=== PATIENT | male | born 1985 | race Caucasian/White ===

== ENCOUNTER 2018-07-28 20:55 | Inpatient (IN) | payer OTHER ==
[2018-07-28 21:57] VITALS: BMI 29.2
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
[2018-07-28] MEDS ORDERED: MENTHOL/PHENOL 1 EACH UD MM PRN (22:27)
[2018-07-28] MEDS ORDERED: MAGNESIUM HYDROX 2400MG/30ML ORAL SUSPENSION 30 ML CUP PO PRN (22:27)
[2018-07-28] MEDS ORDERED: ACETAMINOPHEN 325 MG TABLET (FP) PO PRN (22:27)
[2018-07-28] MEDS ORDERED: guaiFENesin 200 MG/10 ML 10 ML UNIT-DOSE CUPS PO PRN (22:27)
[2018-07-28] MEDS ORDERED: P-EPHED 60MG/TRIPROLIDI 2.5MG TABLET PO PRN (22:27)
[2018-07-28] MEDS ORDERED: MAG HYDROX/AL HYDROX/SIMETH 30 ML UNIT-DOSE CUP PO PRN (22:27)
[2018-07-28] MEDS ORDERED: hydrOXYzine PAMOATE 25 MG CAPSULE (FP) PO PRN (22:27)
[2018-07-28] MEDS ORDERED: ONDANSETRON *ODT* 4 MG TABLET SL PRN (22:27)
[2018-07-28] MEDS ORDERED: BISMUTH SUBSALICYLATE 524 MG/30 ML UD PO PRN (22:27)
[2018-07-28] MEDS ORDERED: MAGNESIUM CITRATE 300 ML BOTTLE PO PRN (22:27)
[2018-07-28] MEDS ORDERED: IBUPROFEN 400 MG TABLET (FP) PO PRN (22:27)
[2018-07-28] MEDS: diazePAM 5 MG TABLET PO SCH (23:05)
[2018-07-29] MEDS ORDERED: LORazepam 2 MG/ML SDV VIAL IM ONE (00:16)
[2018-07-29] MEDS ORDERED: TRIMETHOBENZAMIDE HCL 200MG/2ML INJ IM ONE (00:17)
[2018-07-29] MEDS ORDERED: cloNIDine HCL 0.1 MG TABLET PO ONE (00:20)
--- NOTE | 2018-07-29 00:20 | PN ---
S Progress Note Note: seen for c/o worsening withdrawal sx's c/o, sweats, shakes, dry heaving. client does not want librium taper a- withdrawal sx's p- ativan 1 mg im now tigan 200 mg im now clonidine 0.1 mg now cont to monitor clinically Vital Signs Temperature 98.2 F 07/29/18 00:01 Pulse Rate 119 H 07/29/18 00:03 Respiratory Rate 20 07/29/18 00:03 Blood Pressure 156/111 H 07/29/18 00:01 O2 Sat by Pulse Oximetry (%)
[2018-07-29] MEDS: diazePAM 5 MG TABLET PO PRN ×5 (01:20→21:09)
[2018-07-29] MEDS: diazePAM 5 MG TABLET PO SCH ×3 (05:27→21:54)
[2018-07-29] MEDS: METHOCARBAMOL 500 MG TABLET PO PRN ×2 (09:55→18:17)
[2018-07-29] MEDS: NICOTINE 21 MG/24 HOURS TOPICAL PATCH TD SCH (09:55)
[2018-07-29] MEDS: PRENATAL VITAMINS W/ FOLIC ACID TABLET (FP) PO SCH (09:55)
--- NOTE | 2018-07-29 10:30 | PN ---
S CIWA - CIWA Score Nausea/Vomitin Muscle Tremors: 2 Anxiety: 5 Agitation: 5 Paroxysmal Sweats: 4-Forehead w/Sweat Beads Orientation: 0-Oriented Tacttile Disturbances: 0-None Auditory Disturbances: 0-None Visual Disturbances: 0-None Headache: 0-None Present CIWA-Ar Total Score: 19 BHS COWS - Scale Resting Pulse: 1= [place] 81-100 Sweatin= Beads of Sweat on Face Restless Observation: 3= Extraneous Movement Pupil Size: 0= Normal to Room Light Bone or Joint Aches: 1= Mild Discomfort Runny Nose/ Eye Tearin= Nasal Congestion GI Upset > 30mins: 0= None Tremor Observation of Outstretched Hands: 1= Tremor [place], Not Seen Yawning Observation: 1= 1-2x During Session Anxiety or Irritability: 4=Extreme Anxiety Goose Flesh Skin: 3=Piloerection COWS Score: 18 BHS Progress Note (SOAP) Subjective: Requesting subutex Anxious Objective: 07/29/18 10:32 A & O x 3 Anxious/agitated sweaty Vital Signs Temperature 98.4 F 07/29/18 09:31 Pulse Rate 88 07/29/18 09:31 Respiratory Rate 18 07/29/18 09:31 Blood Pressure 162/95 07/29/18 09:31 O2 Sat by Pulse Oximetry (%) LAbs pending Assessment: 07/29/18 10:33 Withdrawal sx Plan: Continue detox increase hydration Pharmacy does not carry subutex, unable to put pt on suboxone so as not to precipitate adverse reaction. Methadone taper thus started started (moderate), with a STAT dose; pt was educated on the reason and he is agreeable to plan. vistaril d/c in view of its prolongation of QT with methadone; to monitor and manage withdrawal symptoms as necessary.
[2018-07-29] MEDS ORDERED: METHADONE HCL 10 MG TABLET PO STA (10:34)
[2018-07-29 11:04] LABS: ALBUMIN 4.4 g/dl (3.4-5.0); ALK PHOS 121 U/L (45-117); ANION GAP 9 MMOL/L (8-16); BILIRUBIN,TOTAL 0.8 mg/dL (0.2-1); BLOOD UREA NITROGEN 14 mg/dL (7-18); CALCIUM 9.1 mg/dL (8.5-10.1); CHLORIDE 96 mmol/L (98-107); CO2 28 mmol/L (21-32); CREATININE 0.7 mg/dL (0.55-1.3); GLUCOSE,RANDOM 106 mg/dL (74-106); POTASSIUM 3.3 mmol/L (3.5-5.1); SGOT/AST 96 U/L (15-37); SGPT/ALT 97 U/L (13-61); SODIUM 133 mmol/L (136-145); TOT PROT 8.1 g/dl (6.4-8.2)
[2018-07-29 12:18] LABS: HEMATOCRIT 39.7 % (35.4-49); HEMOGLOBIN 14.4 GM/dL (11.7-16.9); MCH 33.9 pg (25.7-33.7); MCHC 36.3 g/dl (32.0-35.9); MEAN CELL VOLUME 93.5 fl (80-96); MEAN PLT VOLUME 7.9 fl (7.5-11.1); RBC 4.25 M/mm3 (4.00-5.60); RDW 14.3 % (11.9-15.9); WHITE BLOOD COUNT 5.5 K/mm3 (4.0-10.0)
[2018-07-29 12:20] LABS: PLATELET COUNT 90 K/MM3 (134-434)
[2018-07-29 12:51] LABS: HYALINE CASTS 6 /hpf (0-8); URINE APPEARANCE CLEAR; URINE BACTERIA 9.144 /hpf (NEGATIVE); URINE BILIRUBIN NEGATIVE (<2.0 mg/dL); URINE COLOR DK YELLOW; URINE GLUCOSE (UA) NEGATIVE (NEGATIVE); URINE KETONE TRACE (NEGATIVE); URINE LEUK ESTERASE TRACE (NEGATIVE); URINE NITRITE NEGATIVE (NEGATIVE); URINE PROTEIN 2+ (NEGATIVE); URINE UROBILINOGEN 4.0 E.U/dl mg/dL (0.2-1.0); URINE WBC 0 /hpf (0-5)
[2018-07-29] MEDS: cloNIDine HCL 0.1 MG TABLET PO PRN (13:35)
[2018-07-29 15:10] LABS: URINE RBC 17.3 /hpf (0-4)
--- NOTE | 2018-07-29 16:35 | EKG ---
Test Reason : Blood Pressure : / mmHG Vent. Rate : 089 BPM Atrial Rate : 089 BPM P-R Int : 148 ms QRS Dur : 102 ms QT Int : 362 ms P-R-T Axes : 060 074 053 degrees QTc Int : 440 ms NORMAL SINUS RHYTHM NORMAL ECG NO PREVIOUS ECGS AVAILABLE Confirmed by CHRISTIE BOWLING MD ([id number]) on 07/29/2018 4:35:13 PM Referred By: Confirmed By:CHRISTIE BOWLING MD
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
[2018-07-29] MEDS: THIAMINE HCL 100 MG TABLET (FP) PO SCH (21:54)
[2018-07-29] MEDS: MELATONIN 5 MG TABLETS PO PRN (21:54)
[2018-07-29] MEDS ORDERED: METHADONE HCL 10 MG TABLET (FOR DETOX USE ONLY) PO ONE (23:00)
[2018-07-30] MEDS: METHOCARBAMOL 500 MG TABLET PO PRN ×4 (00:52→17:40)
[2018-07-30] MEDS: diazePAM 5 MG TABLET PO PRN ×5 (01:36→19:38)
[2018-07-30] MEDS: diazePAM 5 MG TABLET PO SCH ×2 (09:37→22:04)
[2018-07-30] MEDS: NICOTINE 21 MG/24 HOURS TOPICAL PATCH TD SCH (09:37)
[2018-07-30] MEDS: PRENATAL VITAMINS W/ FOLIC ACID TABLET (FP) PO SCH (09:37)
[2018-07-30] MEDS ORDERED: METHADONE HCL 5 MG TABLET (FOR DETOX USE ONLY) PO ONE (10:00)
[2018-07-30] MEDS: cloNIDine HCL 0.1 MG TABLET PO PRN ×2 (12:37→22:03)
--- NOTE | 2018-07-30 15:21 | PN ---
S CIWA - CIWA Score Nausea/Vomitin Muscle Tremors: 3 Anxiety: 3 Agitation: 3 Paroxysmal Sweats: 3 Orientation: 0-Oriented Tacttile Disturbances: 0-None Auditory Disturbances: 0-None Visual Disturbances: 0-None Headache: 0-None Present CIWA-Ar Total Score: 14 BHS COWS - Scale Resting Pulse: 1= [place] 81-100 Sweatin= Chills/Flushing Restless Observation: 3= Extraneous Movement Pupil Size: 0= Normal to Room Light Bone or Joint Aches: 2= Severe Diffuse Aches Runny Nose/ Eye Tearin= Runny Nose/Eyes GI Upset > 30mins: 1= Stomach Cramp Tremor Observation of Outstretched Hands: 2= Slight Tremor Visible Yawning Observation: 0= None Anxiety or Irritability: 2=Irritable/Anxious Goose Flesh Skin: 0=Smooth Skin COWS Score: 14 S Progress Note (SOAP) Subjective: Sweating, chills, tremor, agitated, interrupted sleep, tongue twitching due to tremor as per patient, stated twitching relieved with benzo. As per RN, patient found with tobacco and suboxone film in gloves tucked in his pocket. Patient stated that he took minces of tobacco and a piece of suboxone film with him to detox but he never used any. Patient educated on importance of not mixing his medications with outside medication as this can cause drug OD in which he verbalized understanding. Objective: 07/30/18 15:18 Last Vital Signs Temp Pulse Resp BP Pulse Ox 97.9 F 81 16 163/83 07/30/18 13:11 07/30/18 13:11 07/30/18 13:11 07/30/18 13:11 b/p noted (denies htn, on clonidine prn) Laboratory Tests 07/29/18 07/29/18 07/29/18 07:30 07:30 07:30 WBC 5.5 RBC 4.25 Hgb 14.4 Hct 39.7 MCV 93.5 MCH 33.9 H MCHC 36.3 H RDW 14.3 D Plt Count 90 L D MPV 7.9 Sodium 133 L Potassium 3.3 L Chloride 96 L Carbon Dioxide 28 Anion Gap 9 BUN 14 Creatinine 0.7 Creat Clearance w eGFR 131.54 Random Glucose 106 Calcium 9.1 Total Bilirubin 0.8 AST 96 H ALT 97 H Alkaline Phosphatase 121 H Total Protein 8.1 Albumin 4.4 Urine Color Urine Appearance Urine pH Ur Specific [place] Urine Protein Urine Glucose (UA) Urine Ketones Urine Blood Urine Nitrite Urine Bilirubin Urine Urobilinogen Ur Leukocyte Esterase Urine WBC (Auto) Urine RBC (Auto) Urine Casts (Auto) U Epithel Cells (Auto) Urine Bacteria (Auto) RPR Titer Nonreactive 07/29/18 07:30 WBC RBC Hgb Hct MCV MCH MCHC RDW Plt Count MPV Sodium Potassium Chloride Carbon Dioxide Anion Gap BUN Creatinine Creat Clearance w eGFR Random Glucose Calcium Total Bilirubin AST ALT Alkaline Phosphatase Total Protein Albumin Urine Color Dk yellow Urine Appearance Clear Urine pH 7.0 Ur Specific [place] 1.023 Urine Protein 2+ Urine Glucose (UA) Negative Urine Ketones Trace H Urine Blood Negative Urine Nitrite Negative Urine Bilirubin Negative Urine Urobilinogen 4.0 e.u/dl Ur Leukocyte Esterase Trace Urine WBC (Auto) 0 Urine RBC (Auto) 17.3 Urine Casts (Auto) 6 U Epithel Cells (Auto) 1.0 Urine Bacteria (Auto) 9.144 RPR Titer Labs reviewed: plt 90, K 3.3, abnormal UA Assessment: 07/30/18 15:21 Withdrawal symptoms Noted with thrombocytopenia, hypokalemia and abnormal UA Plan: Continue detox Encouraged PO water hydration Thrombocytopenia: most likely due to chronic alcoholism, follow up with PCP for monitoring Hypokalemia: K Dur 40 Meq PO x 2 doses (give at least 4 hours apart) repeat serum K level in AM Abnormal UA: repeat UA
[2018-07-30] MEDS ORDERED: POTASSIUM CHLORIDE TABS 20 MEQ TABLET.ER (FP) PO ONE ×2 (15:26→21:30)
[2018-07-30] MEDS: THIAMINE HCL 100 MG TABLET (FP) PO SCH (22:03)
[2018-07-30] MEDS: MELATONIN 5 MG TABLETS PO PRN (22:03)
[2018-07-31] MEDS: diazePAM 5 MG TABLET PO PRN ×5 (01:24→19:38)
[2018-07-31] MEDS: METHOCARBAMOL 500 MG TABLET PO PRN ×4 (01:26→19:38)
[2018-07-31] MEDS ORDERED: diazePAM 5 MG TABLET PO SCH (06:00)
[2018-07-31] MEDS: NICOTINE POLACRILEX 4 MG GUM BUC PRN ×2 (06:29→19:59)
[2018-07-31] MEDS: cloNIDine HCL 0.1 MG TABLET PO PRN ×3 (08:49→23:17)
[2018-07-31] MEDS: PRENATAL VITAMINS W/ FOLIC ACID TABLET (FP) PO SCH (09:39)
[2018-07-31] MEDS: NICOTINE 21 MG/24 HOURS TOPICAL PATCH TD SCH (09:39)
[2018-07-31] MEDS ORDERED: METHADONE HCL 10 MG TABLET (FOR DETOX USE ONLY) PO ONE (10:00)
[2018-07-31 12:34] LABS: URINE APPEARANCE CLEAR; URINE BILIRUBIN NEGATIVE (NEGATIVE); URINE COLOR DK YELLOW; URINE GLUCOSE (UA) NEGATIVE (NEGATIVE); URINE KETONE TRACE (NEGATIVE); URINE LEUK ESTERASE NEGATIVE (NEGATIVE); URINE NITRITE NEGATIVE (NEGATIVE); URINE PROTEIN NEGATIVE (NEGATIVE)
--- NOTE | 2018-07-31 17:01 | PN ---
BHS Progress Note (SOAP) Subjective: Interrupted Sleep, Sweating, Tremors. Objective: PATIENT A & O X 3, OBSERVED AMBULATING ON UNIT. IN NO ACUTE DISTRESS. 07/31/18 16:59 Vital Signs Temperature 98.2 F 07/31/18 14:03 Pulse Rate 77 07/31/18 14:03 Respiratory Rate 16 07/31/18 14:03 Blood Pressure 141/63 07/31/18 14:03 O2 Sat by Pulse Oximetry (%) Laboratory Tests 07/29/18 07/29/18 07/29/18 07:30 07:30 07:30 WBC 5.5 RBC 4.25 Hgb 14.4 Hct 39.7 MCV 93.5 MCH 33.9 H MCHC 36.3 H RDW 14.3 D Plt Count 90 L D MPV 7.9 Sodium 133 L Potassium 3.3 L Chloride 96 L Carbon Dioxide 28 Anion Gap 9 BUN 14 Creatinine 0.7 Creat Clearance w eGFR 131.54 Random Glucose 106 Calcium 9.1 Total Bilirubin 0.8 AST 96 H ALT 97 H Alkaline Phosphatase 121 H Total Protein 8.1 Albumin 4.4 Urine Color Urine Appearance Urine pH Ur Specific [place] Urine Protein Urine Glucose (UA) Urine Ketones Urine Blood Urine Nitrite Urine Bilirubin Urine Urobilinogen Ur Leukocyte Esterase Urine WBC (Auto) Urine RBC (Auto) Urine Casts (Auto) U Epithel Cells (Auto) Urine Bacteria (Auto) RPR Titer Nonreactive 07/29/18 07/31/18 07/31/18 07:30 07:00 09:45 WBC RBC Hgb Hct MCV MCH MCHC RDW Plt Count MPV Sodium Potassium 3.9 Chloride Carbon Dioxide Anion Gap BUN Creatinine Creat Clearance w eGFR Random Glucose Calcium Total Bilirubin AST ALT Alkaline Phosphatase Total Protein Albumin Urine Color Dk yellow Dk yellow Urine Appearance Clear Clear Urine pH 7.0 7.0 Ur Specific [place] 1.023 1.022 Urine Protein 2+ Negative Urine Glucose (UA) Negative Negative Urine Ketones Trace H Trace H Urine Blood Negative Negative Urine Nitrite Negative Negative Urine Bilirubin Negative Negative Urine Urobilinogen 4.0 e.u/dl 1.0 Ur Leukocyte Esterase Trace Negative Urine WBC (Auto) 0 Urine RBC (Auto) 17.3 Urine Casts (Auto) 6 U Epithel Cells (Auto) 1.0 Urine Bacteria (Auto) 9.144 RPR Titer LABS NOTED. RESULT OF REPEAT K LEVEL NOTED. K LEVEL NOW NOTED TO BE WITHIN NORMAL RANGE. RESULT OF REPEAT UA NOTED. 07/31/18 17:00 Assessment: 07/31/18 17:00 WITHDRAWAL SYMPTOMS. ELEVATED LIVER ENZYMES. THROMBOCYTOPENIA. 07/31/18 17:01 Plan: CONTINUE DETOX. INCREASE DAILY PO FLUID INTAKE.
[2018-07-31] MEDS: THIAMINE HCL 100 MG TABLET (FP) PO SCH (23:17)
[2018-07-31] MEDS: MELATONIN 5 MG TABLETS PO PRN (23:18)
[2018-08-01] MEDS: METHOCARBAMOL 500 MG TABLET PO PRN (02:12)
[2018-08-01] MEDS ORDERED: METHADONE HCL 5 MG TABLET (FOR DETOX USE ONLY) PO ONE (06:00)
[2018-08-01] MEDS: NICOTINE POLACRILEX 4 MG GUM BUC PRN (06:24)
[2018-08-01 06:40] VITALS: BP 137/84; PULSE 82; TEMP 96.3
--- NOTE | 2018-08-01 08:24 | DS ---
[facility] Detox Discharge Summary Admission Date: 07/28/18 Discharge Date: 08/01/18 - History Present History: Alcohol Dependence, Cannabis Dependence, Sedative Dependence - Physical Exam Results Vital Signs: Vital Signs Temperature 96.3 F L 08/01/18 06:39 Pulse Rate 82 08/01/18 06:39 Respiratory Rate 18 08/01/18 06:39 Blood Pressure 137/84 08/01/18 06:39 O2 Sat by Pulse Oximetry (%) - Treatment Hospital Course: Detox Protocol Followed, Detoxed Safely, Responded well, Discharged Condition Good, Rehab Referral Accepted - Medication Discharge Medications: Ambulatory Orders Buprenorphine HCl [Subutex -] 8 mg SL DAILY 07/28/18 clonazePAM [Klonopin -] 0.5 mg PO DAILY 07/28/18 - Diagnosis (1) Alcohol dependence Current Visit: Yes Status: Active (2) Elevated liver enzymes Current Visit: Yes Status: Acute (3) Nicotine dependence Current Visit: Yes Status: Chronic Qualifiers: Nicotine product type: cigarettes (4) Thrombocytopenia Current Visit: Yes Status: Acute (5) Benzodiazepine dependence Current Visit: Yes Status: Chronic (6) Cannabis dependence Current Visit: Yes Status: Chronic (7) Insomnia Current Visit: Yes Status: Chronic (8) Substance induced mood disorder Current Visit: Yes Status: Chronic (9) Anxiety disorder Current Visit: No Status: Active (10) PTSD Current Visit: No Status: Active - AMA Did Patient Leave Against Medical Advice: No (referred to pt IOP)
== END 2018-08-01 08:24 | disposition home or self-care (01) | DRG 773 ==
LOC: YASAS 20:55 → Y6N 22:39
PROVIDERS: ADMIT Surgery; ATTEND Surgery
PROC: HZ2ZZZZ Detoxification Services for Substance Abuse Treatment (ICD-10-PCS; principal; 2018-07-29)
DX: F10.230 Alcohol dependence with withdrawal, uncomplicated (principal); F11.20 Opioid dependence, uncomplicated; F13.230 Sedative, hypnotic or anxiolytic dependence with withdrawal, uncomplicated; F12.20 Cannabis dependence, uncomplicated; F17.210 Nicotine dependence, cigarettes, uncomplicated; F41.9 Anxiety disorder, unspecified; F19.24 Other psychoactive substance dependence with psychoactive substance-induced mood disorder; F43.10 Post-traumatic stress disorder, unspecified; G47.00 Insomnia, unspecified; R94.5 Abnormal results of liver function studies; D69.6 Thrombocytopenia, unspecified; E87.6 Hypokalemia; R82.90 Unspecified abnormal findings in urine
CPT/HCPCS: 36415; 80053; 81003; 84132; 85027; 86593; 93005; 93010; J0735; Q0162

== ENCOUNTER 2018-12-18 11:26 | Inpatient (IN) | payer OTHER | END 2018-12-21 08:51 | disposition home or self-care (01) | LOC: YASAS 11:26 → Y3N 13:50 ==

== ENCOUNTER 2019-01-29 19:49 | Emergency (ER) | payer OTHER ==
--- NOTE | 2019-01-29 20:13 | PDOC ---
Attending Attestation - Resident Resident Name: Nirali García - ED Attending Attestation I have performed the following: I have examined & evaluated the patient, The case was reviewed & discussed with the resident, I agree w/resident's findings & plan - HPI HPI: 01/29/19 20:45 see resident hpi - Physicial Exam PE: 01/29/19 20:45 agree with resident exam - Medical Decision Making 01/29/19 20:45 33-year-old male with history of polysubstance abuse for clearance sent from [facility] Patient has been ambulating around the emergency department making phone calls to family stating he did not want to wait for full medical clearance He is alert oriented 4 with steady gait He understands that he would be getting both blood work in full medical evaluation which he prefers again not to wait for Security will be escorting him back 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 He has voiced that he will be taking a bus or train back home. He did attempt to call his father from the emergency Department as well.
[2019-01-29] MEDS ORDERED: diazePAM 2 MG TABLET PO ONE (20:14)
[2019-01-29 20:22] VITALS: BP 153/82; PULSE 108; TEMP 98.3; BMI 20.5
--- NOTE | 2019-01-29 20:41 | PDOC ---
History of Present Illness - General Chief Complaint: Alcohol intoxication Stated Complaint: EVALUATION Time Seen by Provider: 01/29/19 20:04 History Source: Patient Exam Limitations: No Limitations - History of Present Illness Initial Comments: 01/29/19 20:36 33yo M with PMH of BZ,Alcohol, Heroin use presenting to ED from [facility] for evaluation. Patient states that he uses Xanax (6 bars qam), Klonopin, Valium, IV heroin, and alcohol. Patient states last use was yesterday and he drinks "1 gallon of 180 proof liquor". He says he used Valium today. He states he feels anxious but denies chest pain, sob, nausea, vomiting, abdominal pain, headaches , changes in vision. Past History - Past Medical History Allergies/Adverse Reactions: Allergies Allergy/AdvReac Type Severity Reaction Status Date / Time No Known Allergies Allergy Verified 01/29/19 20:06 Home Medications: Ambulatory Orders Buprenorphine HCl [Subutex -] 8 mg SL DAILY 07/28/18 clonazePAM [Klonopin -] 0.5 mg PO DAILY 07/28/18 Amlodipine Besylate [Norvasc -] 5 mg PO DAILY #30 tablet 12/20/18 Anemia: No Asthma: No Cancer: No Cardiac Disorders: No CVA: No COPD: No CHF: No Dementia: No Diabetes: No GI Disorders: No Disorders: No HTN: No Hypercholesterolemia: No Kidney Stones: No Liver Disease: No Seizures: Yes (RELATED TO ALCOHOL WITHDRAWAL) Thyroid Disease: No - Surgical History Abdominal Surgery: No Appendectomy: No Cardiac Surgery: No Cholecystectomy: No Lung Surgery: No Neurologic Surgery: No Orthopedic Surgery: No - Reproductive History Testicular Surgery: No - Suicide/Smoking/Psychosocial Hx Smoking History: Current every day smoker Have you smoked in the past 12 months: Yes Number of Cigarettes Smoked Daily: 10 Information on smoking cessation initiated: No 'Breaking Loose' booklet given: 12/18/18 Hx Alcohol Use: Yes Drug/Substance Use Hx: Yes Substance Use Type: Alcohol, Tranquilizers Hx Substance Use Treatment: Yes ([facility]) Review of Systems - Review of Systems Constitutional: Yes: Diaphoresis HEENTM: No: Symptoms Reported Respiratory: No: Symptoms reported Cardiac (ROS): No: Symptoms Reported ABD/GI: No: Symptoms Reported : No: Symptoms Reported Musculoskeletal: No: Symptoms Reported Integumentary: No: Symptoms Reported Neurological: No: Symptoms reported Psychiatric: Yes: Anxiety *Physical Exam - Vital Signs Last Vital Signs Temp Pulse Resp BP Pulse Ox 98.3 F 108 H 22 H 153/82 100 01/29/19 20:03 01/29/19 20:03 01/29/19 20:03 01/29/19 20:03 01/29/19 20:03 - Physical Exam General Appearance: Yes: Nourished, Appropriately Dressed, Other (diaphoretic) HEENT: positive: EOMI, SUKHWINDER, Other (no nystagmus) Neck: negative: Lymphadenopathy (R), Lymphadenopathy (L) Respiratory/Chest: positive: Lungs Clear, Normal Breath Sounds. negative: Crackles, Rales, Stridor, Wheezing, Hyperresonant Cardiovascular: positive: S1, S2, Tachycardia. negative: Edema, JVD, Murmur Vascular Pulses: Dorsalis-Pedis (R): 2+, Doralis-Pedis (L): 2+ Gastrointestinal/Abdominal: positive: Normal Bowel Sounds, Soft. negative: Tender Musculoskeletal: negative: CVA Tenderness Extremity: positive: Normal Capillary Refill. 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 Patient states that he uses Xanax (6 bars qam), Klonopin, Valium, IV heroin, and alcohol. Patient states last use was yesterday and he drinks "1 gallon of 180 proof liquor". He says he used Valium today. He states he feels anxious but denies chest pain, sob, nausea, vomiting, abdominal pain, headaches , changes in vision. patient is tachycardic, diaphoretic. AOx4, walking with steady gait, no slurred speech. Patient is not acutely intoxicated and has capacity to make decisions. Does not require medications at this time. Does not require Utox Can be safely discharged at this time. Patient has belongings and clothing at [facility], will be able to get items. *DC/Admit/Observation/Transfer Diagnosis at time of Disposition: Alcohol dependence, Benzodiazepine dependence, Opioid dependence on agonist therapy - Discharge Dispostion Disposition: HOME Condition at time of disposition: Good - Referrals - Patient Instructions Printed Discharge Instructions: DI for Alcohol Abuse Additional Instructions: You were seen in the emergency room for intoxication. I highly recommend that you go to detox to help you with alcohol, benzodiazepine and heroin dependence. Please come back to the emergency room if you have seizures, pass out, start having abdominal pain, or if any new concerning symptom develops. Thank you - Post Discharge Activity
== END 2019-01-29 23:11 | disposition home or self-care (01) ==
LOC: JER 19:49
DX: F10.20 Alcohol dependence, uncomplicated (principal); F13.20 Sedative, hypnotic or anxiolytic dependence, uncomplicated; F11.20 Opioid dependence, uncomplicated; G40.509 Epileptic seizures related to external causes, not intractable, without status epilepticus; F17.210 Nicotine dependence, cigarettes, uncomplicated
CPT/HCPCS: 99281-25

== ENCOUNTER 2019-01-31 13:45 | Inpatient (IN) | payer OTHER ==
[2019-01-31 14:55] VITALS: BMI 28.8
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
--- NOTE | 2019-01-31 18:48 | PN ---
Teaching Attending Note Name of Resident: Hadley Back ATTENDING PHYSICIAN STATEMENT I saw and evaluated the patient. I reviewed the resident's note and discussed the case with the resident. I agree with the resident's findings and plan as documented. SUBJECTIVE: 33 yo with h/o anxiety/depression on meds. Use of alcohol 1 gallon vodka/day, uses benzo on Bupe 24mg/day OBJECTIVE: Vital Signs - 24 hr 01/31/19 14:44 Temperature 97.7 F Pulse Rate 112 H Respiratory 20 Rate Blood Pressure 156/104 H agitated alert and oriented ASSESSMENT AND PLAN: Admit for alcohol use disorder- valium protocol pt prescribed Klonopin and Bupe
[2019-01-31] MEDS ORDERED: MAGNESIUM CITRATE 300 ML BOTTLE PO PRN (18:56)
[2019-01-31] MEDS ORDERED: ACETAMINOPHEN 325 MG TABLET (FP) PO PRN ×2 (18:56)
[2019-01-31] MEDS ORDERED: hydrOXYzine PAMOATE 25 MG CAPSULE (FP) PO PRN (18:56)
[2019-01-31] MEDS ORDERED: MAGNESIUM HYDROX 2400MG/30ML ORAL SUSPENSION 30 ML CUP PO PRN (18:56)
[2019-01-31] MEDS ORDERED: BISMUTH SUBSALICYLATE 524 MG/30 ML UD PO PRN (18:56)
[2019-01-31] MEDS ORDERED: MAG HYDROX/AL HYDROX/SIMETH 30 ML UNIT-DOSE CUP PO PRN (18:56)
[2019-01-31] MEDS ORDERED: diazePAM 5 MG TABLET PO ONE (18:56)
[2019-01-31] MEDS ORDERED: IBUPROFEN 400 MG TABLET (FP) PO PRN (18:56)
[2019-01-31] MEDS ORDERED: MENTHOL/PHENOL 1 EACH UD MM PRN (18:56)
[2019-01-31] MEDS: METHOCARBAMOL 500 MG TABLET PO PRN (19:39)
[2019-01-31] MEDS: THIAMINE HCL 100 MG TABLET (FP) PO SCH (21:55)
[2019-01-31] MEDS: MELATONIN 5 MG TABLETS PO PRN (21:55)
[2019-01-31] MEDS: BUPRENORPHINE/NALOXONE 8 MG/2 MG FILM PACKET SL SCH (21:55)
[2019-01-31] MEDS: diazePAM 5 MG TABLET PO SCH (21:56)
[2019-01-31] MEDS: diazePAM 5 MG TABLET PO PRN (23:56)
[2019-02-01] MEDS: METHOCARBAMOL 500 MG TABLET PO PRN ×4 (02:31→22:12)
[2019-02-01] MEDS: BUPRENORPHINE/NALOXONE 8 MG/2 MG FILM PACKET SL SCH ×3 (05:53→22:11)
[2019-02-01] MEDS: diazePAM 5 MG TABLET PO SCH ×3 (05:53→22:11)
[2019-02-01] MEDS: diazePAM 5 MG TABLET PO PRN ×3 (07:34→16:59)
[2019-02-01] MEDS: NICOTINE POLACRILEX 2 MG GUM BUC PRN (09:22)
[2019-02-01 09:37] LABS: HEMATOCRIT 41.2 % (35.4-49); HEMOGLOBIN 14.1 GM/dL (11.7-16.9); MCH 32.9 pg (25.7-33.7); MCHC 34.3 g/dl (32.0-35.9); MEAN CELL VOLUME 95.9 fl (80-96); MEAN PLT VOLUME 8.6 fl (7.5-11.1); PLATELET COUNT 103 K/MM3 (134-434); RDW 14.3 % (11.9-15.9)
[2019-02-01 09:46] LABS: ALBUMIN 3.8 g/dl (3.4-5.0); BILIRUBIN,TOTAL 0.7 mg/dL (0.2-1); BLOOD UREA NITROGEN 10.8 mg/dL (7-18); CALCIUM 9.1 mg/dL (8.5-10.1); CREATININE 0.7 mg/dL (0.55-1.3); POTASSIUM 3.3 mmol/L (3.5-5.1)
[2019-02-01] MEDS ORDERED: BUPRENORPHINE/NALOXONE 8 MG/2 MG FILM PACKET SL SCH (10:00)
[2019-02-01] MEDS ORDERED: NICOTINE 14 MG/24 HOURS TOPICAL PATCH TD SCH (10:00)
[2019-02-01] MEDS: amLODIPine BESYLATE 5 MG TABLET (FP) PO SCH (10:37)
[2019-02-01] MEDS: NICOTINE 21 MG/24 HOURS TOPICAL PATCH TD SCH (10:37)
[2019-02-01] MEDS: cloNIDine HCL 0.1 MG TABLET PO SCH (10:37)
[2019-02-01] MEDS: PRENATAL VITAMINS W/ FOLIC ACID TABLET (FP) PO SCH (10:38)
--- NOTE | 2019-02-01 13:20 | PN ---
S CIWA - CIWA Score Nausea/Vomitin-Mild Nausea/No Vomiting Muscle Tremors: 2 Anxiety: 3 Agitation: 2 Paroxysmal Sweats: 1-Minimal Palms Moist Orientation: 0-Oriented Tacttile Disturbances: 1-Very Mild Itch/Numbness Auditory Disturbances: 0-None Visual Disturbances: 0-None Headache: 1-Very Mild CIWA-Ar Total Score: 11 BHS Progress Note (SOAP) Subjective: alert,irritable .anxious,interrupted sleep,pain in the body Objective: 02/01/19 13:18 Vital Signs Temperature 97.6 F 02/01/19 09:38 Pulse Rate 65 02/01/19 09:38 Respiratory Rate 18 02/01/19 09:38 Blood Pressure 155/96 02/01/19 09:38 O2 Sat by Pulse Oximetry (%) 02/01/19 13:19 02/01/19 02/01/19 08:00 08:00 WBC 5.0 RBC 4.30 Hgb 14.1 Hct 41.2 MCV 95.9 MCHC 34.3 RDW 14.3 Plt Count 103 L Sodium 137 Potassium 3.3 L Chloride 100 Carbon Dioxide 31 Anion Gap 6 L BUN 10.8 Creatinine 0.7 labs pending Assessment: 02/01/19 13:19 withdrawal symptom Plan: continue detox valium regimen
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
[2019-02-01] MEDS: GABAPENTIN 300 MG CAPSULE (FP) PO SCH ×2 (15:46→22:11)
[2019-02-01] MEDS: buPROPion HCL 100 MG TABLET PO SCH (15:46)
[2019-02-01] MEDS: THIAMINE HCL 100 MG TABLET (FP) PO SCH (22:11)
[2019-02-01] MEDS: MELATONIN 5 MG TABLETS PO PRN (22:12)
[2019-02-02] MEDS: diazePAM 5 MG TABLET PO PRN ×3 (03:17→13:47)
[2019-02-02] MEDS: GABAPENTIN 300 MG CAPSULE (FP) PO SCH ×3 (05:41→21:44)
[2019-02-02] MEDS: METHOCARBAMOL 500 MG TABLET PO PRN ×2 (05:41→11:42)
[2019-02-02] MEDS: diazePAM 5 MG TABLET PO SCH ×2 (05:44→17:11)
[2019-02-02] MEDS: BUPRENORPHINE/NALOXONE 8 MG/2 MG FILM PACKET SL SCH ×3 (06:54→21:44)
[2019-02-02] MEDS: amLODIPine BESYLATE 5 MG TABLET (FP) PO SCH (09:07)
[2019-02-02] MEDS: buPROPion HCL 100 MG TABLET PO SCH (09:07)
[2019-02-02] MEDS: NICOTINE 21 MG/24 HOURS TOPICAL PATCH TD SCH (09:08)
[2019-02-02] MEDS: PRENATAL VITAMINS W/ FOLIC ACID TABLET (FP) PO SCH (09:08)
[2019-02-02] MEDS: cloNIDine HCL 0.1 MG TABLET PO SCH (09:08)
[2019-02-02] MEDS: NICOTINE POLACRILEX 2 MG GUM BUC PRN (10:15)
--- NOTE | 2019-02-02 15:00 | PN ---
S CIWA - CIWA Score Nausea/Vomitin-No Nausea/No Vomiting Muscle Tremors: 3 Anxiety: 3 Agitation: 0-Normal Activity Paroxysmal Sweats: 4-Forehead w/Sweat Beads Orientation: 0-Oriented Tacttile Disturbances: 0-None Auditory Disturbances: 0-None Visual Disturbances: 0-None Headache: 0-None Present CIWA-Ar Total Score: 10 BHS Progress Note (SOAP) Subjective: c/o of feeling anxious, chills and sweats Objective: 02/02/19 14:59 Vital Signs Temperature 98.4 F 02/02/19 09:26 Pulse Rate 79 02/02/19 09:26 Respiratory Rate 18 02/02/19 09:26 Blood Pressure 141/104 H 02/02/19 09:26 O2 Sat by Pulse Oximetry (%) Laboratory Last Values WBC 5.0 K/mm3 (4.0-10.0) 02/01/19 08:00 RBC 4.30 M/mm3 (4.00-5.60) 02/01/19 08:00 Hgb 14.1 GM/dL (11.7-16.9) 02/01/19 08:00 Hct 41.2 % (35.4-49) 02/01/19 08:00 MCV 95.9 fl (80-96) 02/01/19 08:00 MCH 32.9 pg (25.7-33.7) 02/01/19 08:00 MCHC 34.3 g/dl (32.0-35.9) 02/01/19 08:00 RDW 14.3 % (11.9-15.9) 02/01/19 08:00 Plt Count 103 K/MM3 (134-434) L 02/01/19 08:00 MPV 8.6 fl (7.5-11.1) 02/01/19 08:00 Sodium 137 mmol/L (136-145) 02/01/19 08:00 Potassium 3.3 mmol/L (3.5-5.1) L 02/01/19 08:00 Chloride 100 mmol/L (98-107) 02/01/19 08:00 Carbon Dioxide 31 mmol/L (21-32) 02/01/19 08:00 Anion Gap 6 MMOL/L (8-16) L 02/01/19 08:00 BUN 10.8 mg/dL (7-18) 02/01/19 08:00 Creatinine 0.7 mg/dL (0.55-1.3) 02/01/19 08:00 Est GFR (CKD-EPI)AfAm 144.72 02/01/19 08:00 Est GFR (CKD-EPI)NonAf 124.87 02/01/19 08:00 Random Glucose 88 mg/dL (74-106) 02/01/19 08:00 Calcium 9.1 mg/dL (8.5-10.1) 02/01/19 08:00 Total Bilirubin 0.7 mg/dL (0.2-1) 02/01/19 08:00 AST 49 U/L (15-37) H 02/01/19 08:00 ALT 45 U/L (13-61) 02/01/19 08:00 Alkaline Phosphatase 73 U/L (45-117) 02/01/19 08:00 Total Protein 7.0 g/dl (6.4-8.2) 02/01/19 08:00 Albumin 3.8 g/dl (3.4-5.0) 02/01/19 08:00 RPR Titer Nonreactive (NONREACTIVE) 02/01/19 08:00 Assessment: 02/02/19 15:02 Aox3 + diaphoresis no adventitious breath sounds full ROM no gait abnormality withdrawal sx Plan: increase PO fluids if stable d/c in AM Continue to monitor
[2019-02-02] MEDS: THIAMINE HCL 100 MG TABLET (FP) PO SCH (21:44)
[2019-02-02] MEDS: MELATONIN 5 MG TABLETS PO PRN (21:44)
[2019-02-03] MEDS: diazePAM 5 MG TABLET PO PRN ×2 (00:51→07:06)
[2019-02-03] MEDS: METHOCARBAMOL 500 MG TABLET PO PRN ×2 (00:51→06:44)
[2019-02-03] MEDS: GABAPENTIN 300 MG CAPSULE (FP) PO SCH (05:30)
[2019-02-03] MEDS: BUPRENORPHINE/NALOXONE 8 MG/2 MG FILM PACKET SL SCH (05:31)
[2019-02-03] MEDS: NICOTINE POLACRILEX 2 MG GUM BUC PRN (05:54)
[2019-02-03] MEDS ORDERED: diazePAM 5 MG TABLET PO ONE (06:00)
[2019-02-03 07:37] VITALS: BP 145/81; PULSE 63; TEMP 96
[2019-02-03] MEDS: cloNIDine HCL 0.1 MG TABLET PO SCH (09:00)
--- NOTE | 2019-02-03 12:23 | DS ---
[facility] Detox Discharge Summary Admission Date: 01/31/19 Discharge Date: 02/03/19 - History Present History: Alcohol Dependence, Sedative Dependence Additional Comments: Pt is medically cleared and discharged today. Pt completed his detox protocol. Pt is encouraged to follow-up with CD outpatient program as discussed with his counselor and also to follow-up with his pmd. Pt verbalized understanding of information given. Pt is alert and oriented x3 and in no acute respiratory distress. Pertinent Past History: h/o HTN and alcohol use disorder. - Physical Exam Results Vital Signs: Vital Signs Temperature 96 F L 02/03/19 07:36 Pulse Rate 63 02/03/19 07:36 Respiratory Rate 18 02/03/19 07:36 Blood Pressure 145/81 02/03/19 07:36 O2 Sat by Pulse Oximetry (%) Vital Signs 02/03/19 07:36 Temperature 96 F L Pulse Rate 63 Respiratory 18 Rate Blood Pressure 145/81 Lab Results WBC 5.0 K/mm3 (4.0-10.0) 02/01/19 08:00 RBC 4.30 M/mm3 (4.00-5.60) 02/01/19 08:00 Hgb 14.1 GM/dL (11.7-16.9) 02/01/19 08:00 Hct 41.2 % (35.4-49) 02/01/19 08:00 MCV 95.9 fl (80-96) 02/01/19 08:00 MCHC 34.3 g/dl (32.0-35.9) 02/01/19 08:00 RDW 14.3 % (11.9-15.9) 02/01/19 08:00 Plt Count 103 K/MM3 (134-434) L 02/01/19 08:00 Sodium 137 mmol/L (136-145) 02/01/19 08:00 Potassium 3.3 mmol/L (3.5-5.1) L 02/01/19 08:00 Chloride 100 mmol/L (98-107) 02/01/19 08:00 Carbon Dioxide 31 mmol/L (21-32) 02/01/19 08:00 Anion Gap 6 MMOL/L (8-16) L 02/01/19 08:00 BUN 10.8 mg/dL (7-18) 02/01/19 08:00 Creatinine 0.7 mg/dL (0.55-1.3) 02/01/19 08:00 Random Glucose 88 mg/dL (74-106) 02/01/19 08:00 Calcium 9.1 mg/dL (8.5-10.1) 02/01/19 08:00 Labs noted. Pertinent Admission Physical Exam Findings: Withdrawal symptoms. - Treatment Hospital Course: Detox Protocol Followed, Detoxed Safely, Responded well, Discharged Condition Good - Medication Discharge Medications: Ambulatory Orders Buprenorphine HCl [Subutex -] 8 mg SL Q8H 07/28/18 clonazePAM [Klonopin -] 0.5 mg PO DAILY 07/28/18 Amlodipine Besylate [Norvasc -] 5 mg PO DAILY #30 tablet 12/20/18 Bupropion HCl 100 mg PO TID 01/31/19 Clonidine HCl 0.2 mg PO TID 01/31/19 Lorazepam 1 mg PO PRN 01/31/19 - Diagnosis (1) Alcohol dependence with uncomplicated withdrawal Status: Acute (2) Benzodiazepine dependence Status: Acute (3) Elevated liver enzymes Status: Acute (4) HTN (hypertension) Status: Acute (5) Cannabis dependence Status: Chronic (6) Nicotine dependence Status: Chronic Qualifiers: Nicotine product type: cigarettes Substance use status: in withdrawal Qualified Code(s): F17.213 - Nicotine dependence, cigarettes, with withdrawal (7) Opioid dependence on agonist therapy Status: Chronic - AMA Did Patient Leave Against Medical Advice: No BHS CIWA - CIWA Score Nausea/Vomitin-No Nausea/No Vomiting Muscle Tremors: None Anxiety: 1-Mildly Anxious Agitation: 0-Normal Activity Paroxysmal Sweats: 1-Minimal Palms Moist Orientation: 0-Oriented Tacttile Disturbances: 0-None Auditory Disturbances: 0-None Visual Disturbances: 0-None Headache: 0-None Present CIWA-Ar Total Score: 2
== END 2019-02-03 09:04 | disposition home or self-care (01) | DRG 773 ==
LOC: YASAS 13:45 → Y6N 18:48
PROVIDERS: ADMIT Surgery; ATTEND Surgery
PROC: HZ2ZZZZ Detoxification Services for Substance Abuse Treatment (ICD-10-PCS; principal; 2019-01-31)
DX: F10.230 Alcohol dependence with withdrawal, uncomplicated (principal); F10.220 Alcohol dependence with intoxication, uncomplicated; F11.20 Opioid dependence, uncomplicated; F13.230 Sedative, hypnotic or anxiolytic dependence with withdrawal, uncomplicated; F12.20 Cannabis dependence, uncomplicated; F17.213 Nicotine dependence, cigarettes, with withdrawal; F43.10 Post-traumatic stress disorder, unspecified; F19.24 Other psychoactive substance dependence with psychoactive substance-induced mood disorder; F19.280 Other psychoactive substance dependence with psychoactive substance-induced anxiety disorder; F19.282 Other psychoactive substance dependence with psychoactive substance-induced sleep disorder; F41.9 Anxiety disorder, unspecified; I10 Essential (primary) hypertension; R94.5 Abnormal results of liver function studies; G47.00 Insomnia, unspecified; Z86.69 Personal history of other diseases of the nervous system and sense organs
CPT/HCPCS: 36415; 80053; 85027; 86593; J0735